=== PATIENT | male | born 1990 | race Caucasian/White ===

== ENCOUNTER 2017-06-09 19:47 | Emergency (ER) | payer OTHER ==
[~2017-06-09] VITALS: Ht 182.9 cm; Wt 63.0 kg
[2017-06-09 19:48] VITALS: BP 117/88
[2017-06-09] MEDS ORDERED: NORCO 5/325MG TABLET (BULK FOR ED) PO ONE (21:30)
[2017-06-09] MEDS ORDERED: CLINDAMYCIN 150 MG CAP PO ONE (21:30)
[2017-06-09] MEDS ORDERED: NORCOTAB PO (21:31)
[2017-06-09] MEDS ORDERED: CLEO300C2 PO (21:31)
== END 2017-06-09 21:42 | disposition home or self-care (01) ==
LOC: M ED 19:47
DX: S02.5XXA Fracture of tooth (traumatic), initial encounter for closed fracture (principal); X58.XXXA Exposure to other specified factors, initial encounter; Y92.89 Other specified places as the place of occurrence of the external cause; Y93.89 Activity, other specified; Y99.8 Other external cause status; K04.7 Periapical abscess without sinus; F17.210 Nicotine dependence, cigarettes, uncomplicated

== ENCOUNTER → 2021-07-23 | Outpatient (REF) ==
[~2021-07-23] MED LIST: CLEO300C2 PO; HYDR-3715 PO
== END ==
LOC: M LAB 09:41
PROVIDERS: ATTEND Nurse Practitioner Adult Health
DX: Z02.1 Encounter for pre-employment examination (principal)

== ENCOUNTER → 2021-08-22 | Outpatient (REF) ==
[2021-08-22 13:16] LABS: RSV AMPLIFICATION NEGATIVE (NEGATIVE)
== END ==
LOC: M LABSMTC 10:19
PROVIDERS: ATTEND Pediatrics
DX: Z20.822 Contact with and (suspected) exposure to COVID-19 (principal)

== ENCOUNTER → 2021-10-10 | Outpatient (REF) | LOC: M EMP 12:54 | PROVIDERS: ATTEND Family Medicine | DX: Z11.52 Encounter for screening for COVID-19 (principal); U07.1 COVID-19 ==

== ENCOUNTER 2022-04-19 02:05 | Emergency (ER) | payer OTHER, SELFPAY ==
[~2022-04-19] VITALS: Ht 180.3 cm; Wt 75.0 kg
[2022-04-19 03:10] LABS: HEMATOCRIT 46.1 % (42.0-52.0); HEMOGLOBIN 15.2 g/dl (13.5-17.5); MEAN CORPUSCULAR HEMOGLOBIN 30.2 pg (27.0-33.0); MEAN CORPUSCULAR VOLUME 91.7 fl (80.0-96.0); PLATELET COUNT, AUTOMATED 185 10^3/uL (150-450); RED BLOOD COUNT 5.03 10^6/uL (4.30-6.10); WHITE BLOOD COUNT 9.7 10^3/uL (4.0-10.0)
[2022-04-19 03:19] LABS: AMPHETAMINES LEVEL URINE NEGATIVE (NEGATIVE); BARBITURATES URINE NEGATIVE (NEGATIVE); BENZODIAZEPINES URINE NEGATIVE (NEGATIVE); CANNABINOIDS URINE POSITIVE (NEGATIVE); COCAINE METABOLITE URINE NEGATIVE (NEGATIVE); METHADONE URINE NEGATIVE (NEGATIVE); OPIATES URINE NEGATIVE (NEGATIVE); PHENCYCLIDINE URINE NEGATIVE (NEGATIVE)
[2022-04-19 03:43] LABS: RSV AMPLIFICATION NEGATIVE (NEGATIVE)
[2022-04-19 03:46] LABS: ACETAMINOPHEN LEVEL < 2.0 UG/ML (10.0-30.0); ALBUMIN 4.2 GM/DL (3.2-5.2); ALT/SGPT 27 U/L (12-78); BILIRUBIN,DIRECT 0.2 MG/DL (0.0-0.2); BILIRUBIN,TOTAL 0.7 MG/DL (0.2-1.0); BLOOD UREA NITROGEN 12 MG/DL (7-18); CALCIUM LEVEL 9.1 MG/DL (8.5-10.1); CARBON DIOXIDE LEVEL 22 MEQ/L (21-32); CHLORIDE LEVEL 113 MEQ/L (98-107); CREATININE FOR GFR 1.16 MG/DL (0.70-1.30); ETHYL ALCOHOL (ETHANOL) 0.197 % (0.000-0.010); GLOMERULAR FILTRATION RATE > 60.0 (>60); GLUCOSE, FASTING 93 MG/DL (70-100); POTASSIUM SERUM 3.7 MEQ/L (3.5-5.1); SALICYLATE LEVEL < 1.7 MG/DL (5.0-30.0); SODIUM LEVEL 146 MEQ/L (136-145); TOTAL PROTEIN 7.6 GM/DL (6.4-8.2)
[2022-04-19] MEDS ORDERED: MIDAZOLAM INJ 2MG/2ML VIAL (J2250 PER 1MG) IM ONE (03:50)
[2022-04-19] MEDS ORDERED: OLANZapine INTRAMUSCULAR 10MG VIAL IM ONE ×2 (03:50→07:10)
[2022-04-19] MEDS ORDERED: MIDAZOLAM 5MG/ML 1ML VIAL (J2250 PER 1MG) IM ONE ×2 (04:00→05:10)
[2022-04-19] MEDS ORDERED: HOME MED LIST COMPLETE! XX SCH (05:15)
[2022-04-19] MEDS ORDERED: diphenhydrAMINE 50MG/ML VIAL (J1200) IM ONE (07:10)
[2022-04-19 15:38] VITALS: BP 122/70
== END 2022-04-19 15:42 | disposition home or self-care (01) ==
LOC: M ED 02:05
DX: F43.20 Adjustment disorder, unspecified (principal); F10.229 Alcohol dependence with intoxication, unspecified; Y90.0 Blood alcohol level of less than 20 mg/100 ml
CPT/HCPCS: 36415; 80048; 80076; 80143; 80307; 82077; 84443; 85027; 87631; 96372; 99285; J2250

== ENCOUNTER 2022-06-02 17:10 | Emergency (ER) | payer SELFPAY ==
[~2022-06-02] VITALS: Ht 175.3 cm; Wt 66.2 kg
[2022-06-02 17:11] VITALS: BP 130/79
[2022-06-02] MEDS ORDERED: BACITRACIN OINTMENT 30GM TUBE TOP ONE (18:35)
[2022-06-02] MEDS ORDERED: BOOSTRIX/ADACEL VACCINE (DIPHTH/PERTUSS/ACELL/TETANUS) 0.5ML SYR IM ONE (18:35)
[2022-06-02] MEDS ORDERED: CEPH500C PO (19:05)
[2022-06-02] MEDS ORDERED: CEPHALEXIN 500 MG CAP PO ONE (19:10)
== END 2022-06-02 19:23 | disposition home or self-care (01) ==
LOC: M ED 17:10
DX: S61.217A Laceration without foreign body of left little finger without damage to nail, initial encounter (principal); S61.512A Laceration without foreign body of left wrist, initial encounter; W22.8XXA Striking against or struck by other objects, initial encounter; Y92.018 Other place in single-family (private) house as the place of occurrence of the external cause; Z23 Encounter for immunization

== ENCOUNTER 2024-12-15 13:34 | Emergency (ER) | payer SELFPAY ==
[~2024-12-15] VITALS: Ht 180.3 cm; Wt 62.6 kg
[~2024-12-15 13:34] MED LIST changes: +CEPH500C PO
[2024-12-15 15:41] VITALS: BP 123/83; TEMP 97.4; O2SAT 100
== END 2024-12-15 15:42 | disposition home or self-care (01) ==
LOC: M ED 13:34
DX: R05.9 Cough, unspecified (principal); F17.290 Nicotine dependence, other tobacco product, uncomplicated

== ENCOUNTER 2025-08-05 21:04 | Emergency (ER) | payer SELFPAY ==
[~2025-08-05] VITALS: Ht 175.3 cm; Wt 76.5 kg
[2025-08-05 21:16] VITALS: TEMP 96.3
[2025-08-05] MEDS ORDERED: ISOVUE-370 76% 100 ML VIAL As Ordered ONE (21:20)
[2025-08-05] MEDS: TETANUS/DIPHTH/ACEL. PERTUSSIS 0.5 ML SYR IM.IMMUN ONE (21:25)
[2025-08-05 21:34] LABS: BASO # 0.0 10^3/uL (0.0-0.2); BASO % 0.5 % (0.0-1.0); EOS # 0.0 10^3/uL (0.0-0.5); EOS % 0.5 % (0.0-3.0); LYMPH # 3.7 10^3/uL (1.5-5.0); LYMPH % 42.9 % (24.0-44.0); MONO # 0.7 10^3/uL (0.0-0.8); MONO % 7.6 % (2.0-8.0); NEUTROPHILS # 4.1 10^3/uL (1.5-8.5); NEUTROPHILS % 48.4 % (36.0-66.0); PLATELET COUNT, AUTOMATED 240 10^3/uL (150-450)
[2025-08-05] MEDS: LIDOCAINE 1% MDV 20 ML VIAL SC ONE (21:50)
[2025-08-05 21:58] LABS: CALCIUM LEVEL 9.4 MG/DL (8.5-10.1); CARBON DIOXIDE LEVEL 24.0 MMOL/L (20-31); CHLORIDE LEVEL 103.0 MMOL/L (98-107); CREATININE FOR GFR 1.25 MG/DL (0.70-1.30); GLOMERULAR FILTRATION RATE 77.0 (>60); POTASSIUM SERUM 3.6 MMOL/L (3.5-5.1); SODIUM LEVEL 140.0 MMOL/L (136-145)
[2025-08-05 23:00] VITALS: BP 113/76; O2SAT 98
== END 2025-08-05 23:10 | disposition home or self-care (01) ==
LOC: M ED 21:04
DX: S71.111A Laceration without foreign body, right thigh, initial encounter (principal); W26.0XXA Contact with knife, initial encounter; Y93.89 Activity, other specified; Y92.9 Unspecified place or not applicable; Y99.9 Unspecified external cause status; Z88.8 Allergy status to other drugs, medicaments and biological substances
CPT/HCPCS: 12001; 36415; 73706; 80047; 80048; 85025; 86850; 86900; 86901; 93041; 94760; 99285; Q9967